=== PATIENT | male | born 1995 ===

== ENCOUNTER 2020-11-01 06:56 | Emergency (ER) | payer OTHER, MEDICAID, SELFPAY ==
[2020-11-01 07:09] VITALS: BP 137/80; PULSE 75; RESP 14; TEMP 36.1; O2SAT 97; BMI 26.9
--- NOTE | 2020-11-01 07:37 | ED.WOUNDLAC ---
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 tetanus not up to date Onset (ago): minute(s) Extremity Location: left: forearm Place: work Patient tetanus UTD: No Context: accidental Associated symptoms: none Treatments prior to arrival: bandage Related Data Allergies Allergy/AdvReac Type Severity Reaction Status Date / Time amoxicillin Allergy Hives Verified 11/01/20 07:13 Review of Systems Review of Systems: Constitutional : No Fever, No Chills, HEENT: no redness, no FB sensation Cardiovascular : No Chest Pain, No SOB Respiratory : No Dyspnea Gastrointestinal : No abdominal pain Musculoskeletal : No Joint Swelling Skin : No rash, positive skin laceration Neuro : No Weakness, No Numbness PMFSH Past Medical History Attestation statement: The following information was validated with the patient. Medical History Asthma Surgical History (Updated 11/01/20 @ 07:11 by Doe Butterfield) History of appendectomy Social History Social History (Updated 11/01/20 @ 07:43 by Cris Price DO) Patient Tobacco Use Status: Never used Tobacco Advance Directives: No Advance Directives Information Provided: No Physical Exam Vital Signs: Vital Signs: Last Vital Signs Temp 97 F 11/01/20 07:09 Pulse 75 11/01/20 07:09 Resp 14 11/01/20 07:09 BP 137/80 11/01/20 07:09 Pulse Ox 97 11/01/20 07:09 Body Mass Index 26.9 Appearance: Alert. Oriented X3. No acute distress. Eyes: Pupils equal, round and reactive to light. ENT: Pharynx normal. Neck: Normal inspection. Neck supple. CVS: Normal heart rate and rhythm. Pulses normal. Respiratory: No respiratory distress. Breath sounds normal. Abdomen: Soft and non-tender. Skin: Skin warm and dry. Normal skin color. L forearm posterior superficial laceration 3.5cm Extremities: No lower extremity edema. Neuro: Oriented X 3. No motor deficit. No sensory deficit. MDM - Wound/Laceration MDM Narrative Medical decision making narrative: 24 yo male otherwise healthy here with L forearm laceration at work, no concern for FB, needs tetanus and sutures, NV intact Procedures Laceration Laceration 1: Site: other (left forearm) Side (If applicable): left Size (cm): 3.5 Description: linear Depth: simple, single layer Local Anesthetic: lidocaine 1% Amount of anesthesia used (mL): 5 Pre-repair: wound explored and irrigated extensively Skin layer closed with: nylon Size (cm): 4-0 Number of sutures: 4 Technique: simple, interrupted Discharge Plan Discharge Clinical Impression: Laceration Patient Disposition: Home, Self-Care Instructions: Laceration (ED) Additional Instructions: return to ED for any worsening symptoms or concerns only okay to shower remove in 7 days Stand Alone Forms: Work/School Release
[2020-11-01] MEDS: Diphth,Pertus(ACell),Tet Adult 0.5 ML SYRINGE IM (07:44)
[2020-11-01] MEDS: Lidocaine HCl 2% PF/Epi 1:200 20 ML VIAL INFILTRATI (07:44)
== END 2020-11-01 08:26 | disposition home or self-care (01) ==
PROVIDERS: Emergency Provider Emergency Medicine
DX: S51.812A Laceration without foreign body of left forearm, initial encounter (principal); M79.602 Pain in left arm; W26.9XXA Contact with unspecified sharp object(s), initial encounter; Y93.9 Activity, unspecified; Y92.9 Unspecified place or not applicable; Y99.9 Unspecified external cause status
CPT/HCPCS: 12002; 90471; 90715; 99282; 99284

== ENCOUNTER → 2020-11-08 10:30 | Outpatient (BNVA) | payer OTHER, SELFPAY | PROVIDERS: Visit Provider Internal Medicine | DX: S51.812A Laceration without foreign body of left forearm, initial encounter (principal); W31.89XA Contact with other specified machinery, initial encounter | CPT/HCPCS: 99202; 99212 ==

== ENCOUNTER 2022-07-12 20:41 | Emergency (ER) | payer MEDICAID, SELFPAY ==
--- NOTE | 2022-07-12 20:42 | ECG_ITS ---
Test Reason : CHEST PAIN Blood Pressure : / mmHG Vent. Rate : 076 BPM Atrial Rate : 076 BPM P-R Int : 168 ms QRS Dur : 102 ms QT Int : 360 ms P-R-T Axes : 067 096 053 degrees QTc Int : 405 ms Normal sinus rhythm Rightward axis Borderline ECG No previous ECGs available Referred By: Judith Castro Electronically Signed By:SATYA CUNNINGHAM MD
[2022-07-12 21:08] VITALS: BP 120/73; PULSE 70; RESP 18; TEMP 36.6; O2SAT 97; BMI 27.4
[2022-07-12 21:11] LABS: MANUAL DIFF FLAG NO
[2022-07-12 21:13] LABS: Basophils Absolute Auto 0.1 X10*3/uL (0.0-0.2); Basophils Percent Auto 0.6 % (0-2); Eosinophils Absolute Auto 0.2 X10*3/uL (0.0-0.4); Eosinophils Percent Auto 1.7 % (0-4); Hematocrit 43.9 % (42.0-52.0); Hemoglobin 15.4 g/dl (14.0-18.0); Imm Gran Abs Auto 0.02 X10*3/uL (0.00-0.03); Imm Gran Pct Auto 0.2 % (0.0-0.4); Mean Corpuscular HGB Conc 35.1 g/dl (31.0-36.0); Mean Corpuscular Hemoglobin 30.2 pg (27.0-33.0); Mean Corpuscular Volume 86.1 fL (80.0-98.0); Monocytes Absolute Auto 0.9 X10*3/uL (0.1-1.2); Neutrophils Absolute Auto 5.8 x10*3/uL (2.0-8.3); Neutrophils Percent Auto 58.5 % (45-73); Platelet Count 235 X10*3/uL (160-400); Red Cell Distribution Width 12.5 % (11.0-16.0)
[2022-07-12 21:30] LABS: Alanine Aminotransferase 19 U/L (0-40); Albumin Level 4.4 g/dL (3.5-5.0); Alkaline Phosphatase 81 U/L (39-117); Anion Gap 15 (12-20); Aspartate Amino Transferase 29 U/L (5-37); Bilirubin Total 0.6 mg/dL (0.0-1.0); Blood Urea Nitrogen 16 mg/dL (9-16); Calcium 8.8 mg/dL (8.4-10.2); Carbon Dioxide 20 mmol/L (22-29); Chloride 106 mmol/L (96-108); Estimated Glomerular Filt Rate > 60; Glucose Random 114 mg/dL (60-115); Potassium 4.6 mmol/L (3.3-5.1); Sodium 136 mmol/L (135-145); Total Protein 7.3 g/dL (6.5-8.0)
[2022-07-12 21:37] LABS: Troponin-I High Sensitivity < 2.7 ng/L (<3.5-35.0)
== END 2022-07-12 22:28 | disposition left against medical advice (07) ==
PROVIDERS: Emergency Provider Emergency Medicine
DX: R07.89 Other chest pain (principal); Z79.899 Other long term (current) drug therapy
CPT/HCPCS: 36415; 80053; 84484; 85025; 93005; 99283

== ENCOUNTER 2022-08-14 12:58 | Emergency (ER) | payer MEDICAID, SELFPAY ==
--- NOTE | ~2022-08-14 | XR_ITS ---
EXAMINATION: XR CHEST CLINICAL INFORMATION: Chest pain, shortness of breath COMPARISON: None available. TECHNIQUE: 2 views of the chest were obtained. FINDINGS: The lungs are clear. There is no pneumothorax, pleural reaction, airspace consolidation, or groundglass opacity. The costophrenic sulci are well-defined. The heart is normal in size. Vascularity is normal. The hilar and mediastinal contours and visualized bony structures are unremarkable. XR/XR chest 2V IMPRESSION: Normal chest.
--- NOTE | 2022-08-14 12:59 | ECG_ITS ---
Test Reason : CP Blood Pressure : / mmHG Vent. Rate : 079 BPM Atrial Rate : 079 BPM P-R Int : 142 ms QRS Dur : 092 ms QT Int : 364 ms P-R-T Axes : 062 096 058 degrees QTc Int : 417 ms Normal sinus rhythm Rightward axis Borderline ECG When compared with ECG of 12-JUL-2022 20:55, No significant change was found Referred By: Judith Castro Electronically Signed By:Daniel Mena
--- NOTE | 2022-08-14 13:08 | ED.CHESTPAIN ---
HPI - Chest Pain General Chief Complaint: Chest Pain <Judith Castro NP - Last Filed: 08/14/22 13:11> Stated Complaint: chest pain <Judith Castro NP - Last Filed: 08/14/22 13:11> Time Seen by Provider: 08/14/22 14:08 <Judith Castro NP - Last Filed: 08/14/22 13:11> Source: patient <IZABELLA Leonard - Last Filed: 08/17/22 11:33> Mode of arrival: ambulatory <IZABELLA Leonard - Last Filed: 08/17/22 11:33> Limitations: no limitations <IZABELLA Leonard Last Filed: 08/17/22 11:33> History of Present Illness HPI narrative: Patient is a 26 year old assigned male at with a history of asthma presenting to the emergency department today with intermittent chest pain and SOB. Patient states that over the last 2 days he has had intermittent chest pain and shortness of breath which his usual inhaler is not helping with. Patient denies any dizziness, lightheadedness, abdominal pain, nausea, vomiting, fever, chills, blurry vision, double vision, loss of vision, back pain, night sweats, pain with urination, increased urinary frequency, increased urinary urgency, blood in his urine or stool, syncope or a near syncopal episode, recent trauma or falls, bowel incontinence, bladder incontinence, bowel retention, bladder retention, or any other complaints at this time. <IZABELLA Leonard - Last Filed: 08/17/22 11:33> Onset (ago): day(s) (2) <IZABELLA Leonard - Last Filed: 08/17/22 11:33> Related Data Home Medications: Previous Rx's Medication Instructions Recorded albuterol sulfate 90 mcg/actuation 1 inh inhalation QID PRN shortness 08/14/22 aerosol inhaler of breath or wheezing #8.5 grams prednisone 20 mg tablet 20 mg PO DAILY 7 days #7 tabs 08/14/22 <Judith Castro NP - Last Filed: 08/14/22 13:11> Allergies/Adverse Reactions: Allergies Allergy/AdvReac Type Severity Reaction Status Date / Time amoxicillin Allergy Hives Verified 08/14/22 13:12 <Judith Castro NP - Last Filed: 08/14/22 13:11> Review of Systems Constitutional: Constitutional: Reports no additional constitutional complaints, Denies chills, Denies fever(s) and Denies night sweats <IZABELLA Leonard - Last Filed: 08/17/22 11:33> Eyes: Eyes: Reports no additional eye complaints, Denies blurry vision, Denies change in vision, Denies diplopia, Denies eye discharge, Denies loss of vision and Denies eye pain <IZABELLA Leonard - Last Filed: 08/17/22 11:33> ENT: Denies dizziness <IZABELLA Leonard - Last Filed: 08/17/22 11:33> Cardiovascular: Cardiovascular: Reports no additional cardiovascular complaints, Reports chest pain, Denies lightheadedness, Denies Loss of Consciousness and Reports dyspnea <IZABELLA Leonard - Last Filed: 08/17/22 11:33> Respiratory: Respiratory: Reports no additional respiratory complaints and Reports dyspnea <IZABELLA Leonard - Last Filed: 08/17/22 11:33> Gastrointestinal: Gastrointestinal: Reports no additional gastrointestinal complaints, Denies abdominal pain, Denies melena, Denies hematochezia, Denies change in bowel habits and Denies change in stool character <IZABELLA Leonard - Last Filed: 08/17/22 11:33> Genitourinary: Genitourinary: Reports no additional male genitourinary complaints, Denies hematuria, Denies oliguria, Denies difficulty urinating, Denies dysuria, Denies urinary frequency, Denies urinary hesitancy, Denies urinary incontinence and Denies urinary urgency <IZABELLA Leonard - Last Filed: 08/17/22 11:33> Musculoskeletal: Musculoskeletal: Reports no additional musculoskeletal complaints, Denies numbness and Denies tingling <IZABELLA Leonard - Last Filed: 08/17/22 11:33> Neurologic: Denies dizziness, Denies loss of vision, Denies numbness and Denies tingling <IZABELLA Leonard - Last Filed: 08/17/22 11:33> Psychiatric: Psychiatric: Reports no additional psychiatric complaints <IZABELLA Leonard - Last Filed: 08/17/22 11:33> Endocrine: Endocrine: Reports no additional endocrine complaints <IZABELLA Leonard - Last Filed: 08/17/22 11:33> Hematologic/Lymphatic: Hematologic/Lymphatic: Reports no additional hematologic/lymphatic complaints <IZABELLA Leonard - Last Filed: 08/17/22 11:33> Allergic/Immunologic: Allergic/Immunologic: Reports no additional allergic/immunologic complaints <IZABELLA Leonard - Last Filed: 08/17/22 11:33> [facility] Past Medical History Attestation statement: The following information was validated with the patient. <IZABELLA Leonard - Last Filed: 08/17/22 11:33> Source: old records reviewed and nursing notes reviewed <IZABELLA Leonard - Last Filed: 08/17/22 11:33> Medical History: Medical History Asthma <Judith Castro NP - Last Filed: 08/14/22 13:11> Surgical History: Surgical History History of appendectomy <Judith Castro NP - Last Filed: 08/14/22 13:11> Social History Social History: Social History Patient Tobacco Use Status: Never used Tobacco Advance Directives: No <Judith Castro NP - Last Filed: 08/14/22 13:11> Physical Exam Vital Signs: Vital Signs: Last Vital Signs Temp 98.3 F 08/14/22 13:09 Pulse 85 08/14/22 13:09 Resp 20 08/14/22 13:09 BP 107/59 L 08/14/22 13:09 Pulse Ox 97 08/14/22 13:09 O2 Del Method Room Air 08/14/22 13:09 BMI result Body Mass Index 28.2 <Judith Castro NP - Last Filed: 08/14/22 13:11> Vital Signs: Last Vital Signs Temp 98.3 F 08/14/22 13:09 Pulse 85 08/14/22 13:09 Resp 20 08/14/22 13:09 BP 107/59 L 08/14/22 13:09 Pulse Ox 97 08/14/22 13:09 O2 Del Method Room Air 08/14/22 13:09 BMI result Body Mass Index 28.2 <IZABELLA Leonard - Last Filed: 08/17/22 11:33> Const: General: cooperative, no acute distress, alert and awake <IZABELLA Leonard - Last Filed: 08/17/22 11:33> Nutritional Appearance: well nourished <IZABELLA Leonard - Last Filed: 08/17/22 11:33> Orientation/consciousness: patient oriented x3 <IZABELLA Leonard - Last Filed: 08/17/22 11:33> Limitations: no limitations <IZABELLA Leonard - Last Filed: 08/17/22 11:33> HEENT: Head: Yes normal to inspection and Yes atraumatic <IZABELLA Leonard - Last Filed: 08/17/22 11:33> Ears: hearing grossly normal bilaterally and external ears normal <IZABELLA Leonard - Last Filed: 08/17/22 11:33> General nose exam: Normal external nose present, no nasal discharge noted and no epistaxis <IZABELLA Leonard - Last Filed: 08/17/22 11:33> Face and sinus: Yes normal facial exam, No abrasion and No laceration <IZABELLA Leonard - Last Filed: 08/17/22 11:33> Mouth: Normal oral and palatal mucosa present, no drooling and no muffled voice <IZABELLA Leonard - Last Filed: 08/17/22 11:33> Eyes: General: appearance normal, both eyes and all related structures <IZABELLA Leonard - Last Filed: 08/17/22 11:33> Periorbital: periorbital findings normal <IZABELLA Leonard - Last Filed: 08/17/22 11:33> Eyelids: Yes eyelids normal <IZABELLA Leonard - Last Filed: 08/17/22 11:33> Conjunctivae: conjunctivae normal <IZABELLA Leonard - Last Filed: 08/17/22 11:33> Pupils: Equal, round and reactive pupils present <IZABELLA Leonard - Last Filed: 08/17/22 11:33> EOM: EOMs intact bilaterally <Amada Murphy IZABELLA - Last Filed: 08/17/22 11:33> Neck: Neck: Yes normal visual inspection, Yes full ROM and Yes no lymphadenopathy <Amada Murphy OK - Last Filed: 08/17/22 11:33> Chest: Chest palpation & inspection: normal inspection of the chest <Amada Murphy OK - Last Filed: 08/17/22 11:33> Resp: Effort & Inspection: normal respiratory effort and able to speak in complete sentences <Amada Murphy OK - Last Filed: 08/17/22 11:33> Auscultation: wheezes scattered wheezes <Amada Murphy OK - Last Filed: 08/17/22 11:33> Cardio: Rate: regular rate <Amada Murphy OK - Last Filed: 08/17/22 11:33> Rhythm: regular rhythm <Amada Murphy OK - Last Filed: 08/17/22 11:33> GI: Inspection: Yes normal to inspection <Amada Murphy OK - Last Filed: 08/17/22 11:33> Neuro: General: patient oriented x3 and moves all extremities <Amada Murphy OK - Last Filed: 08/17/22 11:33> Cranial nerves: Yes Equal, round and reactive pupils present <Amada Murphy OK - Last Filed: 08/17/22 11:33> Cognition (Neuro): normal cognition <Amada Murphy OK - Last Filed: 08/17/22 11:33> Motor exam (neuro): 5/5 motor strength present throughout <Amada Murphy OK - Last Filed: 08/17/22 11:33> Sensory Exam: Normal double simultaneous stimulation for sensation <Amada Murphy OK - Last Filed: 08/17/22 11:33> Coordination: [id number] test normal <Amada Murphy IZABELLA - Last Filed: 08/17/22 11:33> Extrem: General: Yes normal to inspection, Yes full ROM and Yes capillary refill normal <Amada Murphy OK - Last Filed: 08/17/22 11:33> Psych: Appearance: grossly normal <IZABELLA Leonard - Last Filed: 08/17/22 11:33> Mental Status: mental status grossly normal <IZABELLA Leonard - Last Filed: 08/17/22 11:33> Affect: normal affect <IZABELLA Leonard - Last Filed: 08/17/22 11:33> Attitude: cooperative <IZABELLA Leonard - Last Filed: 08/17/22 11:33> Thought process: Normal thought process present <IZABELLA Leonard - Last Filed: 08/17/22 11:33> Thought content: Normal thought content present <IZABELLA Leonard - Last Filed: 08/17/22 11:33> Insight: Good insight present (Psych) <IZABELLA Leonard - Last Filed: 08/17/22 11:33> Course Course Course Narrative: tHis is a rapid medical exam. Deferred additional HPI, ROS, PE to primary provider. 26 yo male with history of asthma, tobacco smoking (cigarettes/marijuna), heart murmur here with complaints of intermittent chest pain/shortnesss of breath. Patient reports evaluated here 1 month ago for same. Established a PCP today and when speaking to intake nurse she recommended patient being seen again in the ER for continued chest pain. WIll obtain labs, EKG, CXR. VSS <Judith Castro NP - Last Filed: 08/14/22 13:11> Medical Decision Making Medical Decision Making MDM Narrative: Patient is a 26 year old assigned male at with a history of asthma presenting to the emergency department today with chest pain and shortness of breath. Patient's physical exam showed minimal scattered wheezes. Patient's blood work was unremarkable. Patient's EKG was unremarkable. Patient's chest x-ray showed no acute process. I explained my physical exam findings as well as all test results to the patient. I answered all questions asked by the patient. I stressed the importance of the patient taking his medication as prescribed. I stressed the importance of the patient following up with his primary care provider. I stressed the importance of the patient returning to the emergency department immediately if his symptoms were to worsen or if he were to develop any dizziness, shortness of breath, difficulty breathing, chest pain, blurry vision, loss of vision, nausea, vomiting, abdominal pain, fever, chills, back pain, or any other complaints. Patient verbalized agreement and understanding with this treatment plan and discharge. <IZABELLA Leonard - Last Filed: 08/17/22 11:33> Differential Diagnosis Differential Diagnoses: The differential diagnosis associated with the presentation includes <IZABELLA Leonard - Last Filed: 08/17/22 11:33> asthma exacerbation <IZABELLA Leonard - Last Filed: 08/17/22 11:33> Lab Data MDM Lab Attestation statement: I reviewed the patient's lab results. <IZAEBLLA Leonard - Last Filed: 08/17/22 11:33> Result Diagrams: 08/14/22 13:18 08/14/22 13:18 <Judith Castro NP - Last Filed: 08/14/22 13:11> Labs: Lab Results 08/14/22 08/14/22 08/14/22 Range/Units 13:18 13:18 13:18 WBC 8.5 (4.8-10.8) X10*3/uL RBC 5.28 (4.60-5.80) X10*6/uL Hgb 15.5 (14.0-18.0) g/dl Hct 45.9 (42.0-52.0) % MCV 86.9 (80.0-98.0) fL MCH 29.4 (27.0-33.0) pg MCHC 33.8 (31.0-36.0) g/dl RDW 12.9 (11.0-16.0) % Plt Count 241 (160-400) X10*3/uL MPV 9.8 (9.4-12.4) fL Immature Gran % (Auto) 0.2 (0.0-0.4) % Neut % (Auto) 61.5 (45-73) % Lymph % (Auto) 28.5 (20-40) % Ripley % (Auto) 7.8 (2-11) % Eos % (Auto) 1.5 (0-4) % Baso % (Auto) 0.5 (0-2) % Lymph # (Auto) 2.4 (1.2-4.9) X10*3/uL Ripley # (Auto) 0.7 (0.1-1.2) X10*3/uL Eos # (Auto) 0.1 (0.0-0.4) X10*3/uL Baso # (Auto) 0.0 (0.0-0.2) X10*3/uL Abs Immat Gran (auto) 0.02 (0.00-0.03) X10*3/uL Absolute Neuts (auto) 5.2 (2.0-8.3) x10*3/uL Absolute Nucleated RBC 0.000 (0.0-0.012) X10*3/uL Nucleated RBC % (auto) 0.0 (0.0-0.2) /100WBC PT 11.8 (10.0-13.1) SEC INR 1.0 (0.9-1.1) Sodium 140 (135-145) mmol/L Potassium 4.1 (3.3-5.1) mmol/L Chloride 107 (96-108) mmol/L Carbon Dioxide 27 (22-29) mmol/L Anion Gap 10 L (12-20) BUN 10 (9-16) mg/dL Creatinine 0.91 (0.5-1.4) mg/dL Estim Creat Clear Calc 122.9 Estimated GFR > 60 Random Glucose 96 (60-115) mg/dL Calcium 9.0 (8.4-10.2) mg/dL Total Bilirubin 0.6 (0.0-1.0) mg/dL Direct Bilirubin 0.1 (0.0-0.5) mg/dL AST 21 (5-37) U/L ALT 22 (0-40) U/L Alkaline Phosphatase 85 (39-117) U/L Troponin I High Sens (<3.5-35.0) ng/L Total Protein 7.0 (6.5-8.0) g/dL Albumin 4.3 (3.5-5.0) g/dL COVID-19 (ROBERT) (Negative) COVID-19 Clin Com 08/14/22 08/14/22 Range/Units 13:18 13:18 WBC (4.8-10.8) X10*3/uL RBC (4.60-5.80) X10*6/uL Hgb (14.0-18.0) g/dl Hct (42.0-52.0) % MCV (80.0-98.0) fL MCH (27.0-33.0) pg MCHC (31.0-36.0) g/dl RDW (11.0-16.0) % Plt Count (160-400) X10*3/uL MPV (9.4-12.4) fL Immature Gran % (Auto) (0.0-0.4) % Neut % (Auto) (45-73) % Lymph % (Auto) (20-40) % Ripley % (Auto) (2-11) % Eos % (Auto) (0-4) % Baso % (Auto) (0-2) % Lymph # (Auto) (1.2-4.9) X10*3/uL Ripley # (Auto) (0.1-1.2) X10*3/uL Eos # (Auto) (0.0-0.4) X10*3/uL Baso # (Auto) (0.0-0.2) X10*3/uL Abs Immat Gran (auto) (0.00-0.03) X10*3/uL Absolute Neuts (auto) (2.0-8.3) x10*3/uL Absolute Nucleated RBC (0.0-0.012) X10*3/uL Nucleated RBC % (auto) (0.0-0.2) /100WBC PT (10.0-13.1) SEC INR (0.9-1.1) Sodium (135-145) mmol/L Potassium (3.3-5.1) mmol/L Chloride (96-108) mmol/L Carbon Dioxide (22-29) mmol/L Anion Gap (12-20) BUN (9-16) mg/dL Creatinine (0.5-1.4) mg/dL Estim Creat Clear Calc Estimated GFR Random Glucose (60-115) mg/dL Calcium (8.4-10.2) mg/dL Total Bilirubin (0.0-1.0) mg/dL Direct Bilirubin (0.0-0.5) mg/dL AST (5-37) U/L ALT (0-40) U/L Alkaline Phosphatase (39-117) U/L Troponin I High Sens < 2.7 (<3.5-35.0) ng/L Total Protein (6.5-8.0) g/dL Albumin (3.5-5.0) g/dL COVID-19 (ROBERT) Negative (Negative) COVID-19 Clin Com See Note <Judith Gloria, ANGLE DOZER OPERATOR - Last Filed: 08/14/22 13:11> Lab Results 08/14/22 08/14/22 08/14/22 Range/Units 13:18 13:18 13:18 WBC 8.5 (4.8-10.8) X10*3/uL RBC 5.28 (4.60-5.80) X10*6/uL Hgb 15.5 (14.0-18.0) g/dl Hct 45.9 (42.0-52.0) % MCV 86.9 (80.0-98.0) fL MCH 29.4 (27.0-33.0) pg MCHC 33.8 (31.0-36.0) g/dl RDW 12.9 (11.0-16.0) % Plt Count 241 (160-400) X10*3/uL MPV 9.8 (9.4-12.4) fL Immature Gran % (Auto) 0.2 (0.0-0.4) % Neut % (Auto) 61.5 (45-73) % Lymph % (Auto) 28.5 (20-40) % Ripley % (Auto) 7.8 (2-11) % Eos % (Auto) 1.5 (0-4) % Baso % (Auto) 0.5 (0-2) % Lymph # (Auto) 2.4 (1.2-4.9) X10*3/uL Ripley # (Auto) 0.7 (0.1-1.2) X10*3/uL Eos # (Auto) 0.1 (0.0-0.4) X10*3/uL Baso # (Auto) 0.0 (0.0-0.2) X10*3/uL Abs Immat Gran (auto) 0.02 (0.00-0.03) X10*3/uL Absolute Neuts (auto) 5.2 (2.0-8.3) x10*3/uL Absolute Nucleated RBC 0.000 (0.0-0.012) X10*3/uL Nucleated RBC % (auto) 0.0 (0.0-0.2) /100WBC PT 11.8 (10.0-13.1) SEC INR 1.0 (0.9-1.1) Sodium 140 (135-145) mmol/L Potassium 4.1 (3.3-5.1) mmol/L Chloride 107 (96-108) mmol/L Carbon Dioxide 27 (22-29) mmol/L Anion Gap 10 L (12-20) BUN 10 (9-16) mg/dL Creatinine 0.91 (0.5-1.4) mg/dL Estim Creat Clear Calc 122.9 Estimated GFR > 60 Random Glucose 96 (60-115) mg/dL Calcium 9.0 (8.4-10.2) mg/dL Total Bilirubin 0.6 (0.0-1.0) mg/dL Direct Bilirubin 0.1 (0.0-0.5) mg/dL AST 21 (5-37) U/L ALT 22 (0-40) U/L Alkaline Phosphatase 85 (39-117) U/L Troponin I High Sens (<3.5-35.0) ng/L Total Protein 7.0 (6.5-8.0) g/dL Albumin 4.3 (3.5-5.0) g/dL COVID-19 (ROBERT) (Negative) COVID-19 Clin Com 08/14/22 08/14/22 Range/Units 13:18 13:18 WBC (4.8-10.8) X10*3/uL RBC (4.60-5.80) X10*6/uL Hgb (14.0-18.0) g/dl Hct (42.0-52.0) % MCV (80.0-98.0) fL MCH (27.0-33.0) pg MCHC (31.0-36.0) g/dl RDW (11.0-16.0) % Plt Count (160-400) X10*3/uL MPV (9.4-12.4) fL Immature Gran % (Auto) (0.0-0.4) % Neut % (Auto) (45-73) % Lymph % (Auto) (20-40) % Ripley % (Auto) (2-11) % Eos % (Auto) (0-4) % Baso % (Auto) (0-2) % Lymph # (Auto) (1.2-4.9) X10*3/uL Ripley # (Auto) (0.1-1.2) X10*3/uL Eos # (Auto) (0.0-0.4) X10*3/uL Baso # (Auto) (0.0-0.2) X10*3/uL Abs Immat Gran (auto) (0.00-0.03) X10*3/uL Absolute Neuts (auto) (2.0-8.3) x10*3/uL Absolute Nucleated RBC (0.0-0.012) X10*3/uL Nucleated RBC % (auto) (0.0-0.2) /100WBC PT (10.0-13.1) SEC INR (0.9-1.1) Sodium (135-145) mmol/L Potassium (3.3-5.1) mmol/L Chloride (96-108) mmol/L Carbon Dioxide (22-29) mmol/L Anion Gap (12-20) BUN (9-16) mg/dL Creatinine (0.5-1.4) mg/dL Estim Creat Clear Calc Estimated GFR Random Glucose (60-115) mg/dL Calcium (8.4-10.2) mg/dL Total Bilirubin (0.0-1.0) mg/dL Direct Bilirubin (0.0-0.5) mg/dL AST (5-37) U/L ALT (0-40) U/L Alkaline Phosphatase (39-117) U/L Troponin I High Sens < 2.7 (<3.5-35.0) ng/L Total Protein (6.5-8.0) g/dL Albumin (3.5-5.0) g/dL COVID-19 (ROBERT) Negative (Negative) COVID-19 Clin Com See Note <IZABELLA Leonard - Last Filed: 08/17/22 11:33> Independent Interpretation I performed an independent interpretation of an: EKG and Plain X-Ray <IZABELLA Leonard - Last Filed: 08/17/22 11:33> Interpretation: Vent. Rate: 079 BPM ? ? Atrial Rate: 079 BPM P-R Int: 142 ms? QRS Dur: 092 ms QT Int: 364 ms ? ? ? P-R-T Axes: 062 096 058 degrees QTc Int: 417 ms ? Normal sinus rhythm Rightward axis Borderline ECG When compared with ECG of 12-JUL-2022 20:55, No significant change was found Electronically Signed By:Daniel Mena Dictated By: Daniel Mena MD Signed By: Electronically signed by Daniel Mena MD 08/14/222007 My interpretation is in agreement with the radiologist's impression of this imaging study. EXAMINATION: XR CHEST CLINICAL INFORMATION: Chest pain, shortness of breath COMPARISON: None available. TECHNIQUE: 2 views of the chest were obtained. FINDINGS: The lungs are clear. There is no pneumothorax, pleural reaction, airspace consolidation, or groundglass opacity. The costophrenic sulci are well-defined. The heart is normal in size. Vascularity is normal. The hilar and mediastinal contours and visualized bony structures are unremarkable. XR/XR chest 2V IMPRESSION: Normal chest. Dictated By: Quang Yin MD Signed By: Electronically signed by Quang Yin MD 08/14/22 1427 <IZABELLA Leonard - Last Filed: 08/17/22 11:33> Discharge Plan Discharge Clinical Impression: Asthma <Judith Castro NP - Last Filed: 08/14/22 13:11> Patient Disposition: Home, Self-Care <Judith Castro NP - Last Filed: 08/14/22 13:11> Instructions: Asthma (DC) <Judith Castro NP - Last Filed: 08/14/22 13:11> Additional Instructions: Follow up with your primary care provider. Return to the emergency department immediately if your symptoms worsen or if you develop any dizziness, shortness of breath, difficulty breathing, chest pain, blurry vision, loss of vision, nausea, vomiting, abdominal pain, fever, chills, back pain, or any other complaints. <Judith Castro NP - Last Filed: 08/14/22 13:11> Prescriptions: New prednisone 20 mg tablet 20 mg PO DAILY 7 Days Qty: 7 0RF albuterol sulfate 90 mcg/actuation HFA aerosol inhaler 1 inh inhalation QID PRN (Reason: shortness of breath or wheezing) Qty: 8.5 0RF <Judith Castro NP - Last Filed: 08/14/22 13:11> Referrals: [facility] [place] Cardiovascular Services [Provider Group] (Call to establish and follow up with a iron erector to discuss the murmur you were told you had 6 years ago.) [facility] [place] Family Medicine [Provider Group] (Call to establish and follow up with a primary care provider. If you already have a primary care provider, please follow up with them.) [facility] [place] Primary Care, Susan [Provider Group] (Call to establish and follow up with a primary care provider. If you already have a primary care provider, please follow up with them.) [facility] Primary Care,Liane [Provider Group] (Call to establish and follow up with a primary care provider. If you already have a primary care provider, please follow up with them.) <Judith Castro NP - Last Filed: 08/14/22 13:11> Stand Alone Forms: Work/School Release <Judith Castro NP - Last Filed: 08/14/22 13:11> Interventions: ED Discharge Assessment Last Done: 08/14/22 14:41 <Judith Castro NP - Last Filed: 08/14/22 13:11> Discharge Date/Time: 08/14/22 14:58 <Judith Castro NP - Last Filed: 08/14/22 13:11> Print Language: Somali <Judith Castro ANGLE DOZER OPERATOR - Last Filed: 08/14/22 13:11>
[2022-08-14 13:09] VITALS: BP 107/59; PULSE 85; RESP 20; TEMP 36.8; O2SAT 97; BMI 28.2
[2022-08-14 13:23] LABS: MANUAL DIFF FLAG NO
[2022-08-14 13:25] LABS: Basophils Percent Auto 0.5 % (0-2); Eosinophils Absolute Auto 0.1 X10*3/uL (0.0-0.4); Eosinophils Percent Auto 1.5 % (0-4); Hematocrit 45.9 % (42.0-52.0); Hemoglobin 15.5 g/dl (14.0-18.0); Imm Gran Abs Auto 0.02 X10*3/uL (0.00-0.03); Imm Gran Pct Auto 0.2 % (0.0-0.4); Lymphocytes Absolute Auto 2.4 X10*3/uL (1.2-4.9); Lymphocytes Percent Auto 28.5 % (20-40); Mean Corpuscular HGB Conc 33.8 g/dl (31.0-36.0); Mean Corpuscular Hemoglobin 29.4 pg (27.0-33.0); Mean Corpuscular Volume 86.9 fL (80.0-98.0); Mean Platelet Volume 9.8 fL (9.4-12.4); Monocytes Absolute Auto 0.7 X10*3/uL (0.1-1.2); Monocytes Percent Auto 7.8 % (2-11); Neutrophils Absolute Auto 5.2 x10*3/uL (2.0-8.3); Neutrophils Percent Auto 61.5 % (45-73); Platelet Count 241 X10*3/uL (160-400); Red Blood Count 5.28 X10*6/uL (4.60-5.80); Red Cell Distribution Width 12.9 % (11.0-16.0); White Blood Count 8.5 X10*3/uL (4.8-10.8)
[2022-08-14 13:30] LABS: Prothrombin Time 11.8 SEC (10.0-13.1)
[2022-08-14 13:41] LABS: Alanine Aminotransferase 22 U/L (0-40); Albumin Level 4.3 g/dL (3.5-5.0); Alkaline Phosphatase 85 U/L (39-117); Anion Gap 10 (12-20); Aspartate Amino Transferase 21 U/L (5-37); Bilirubin Direct 0.1 mg/dL (0.0-0.5); Bilirubin Total 0.6 mg/dL (0.0-1.0); Blood Urea Nitrogen 10 mg/dL (9-16); Carbon Dioxide 27 mmol/L (22-29); Chloride 107 mmol/L (96-108); Creatinine Clr Calc Pharmacy 122.9; Estimated Glomerular Filt Rate > 60; Glucose Random 96 mg/dL (60-115); Potassium 4.1 mmol/L (3.3-5.1); Sodium 140 mmol/L (135-145)
[2022-08-14 13:49] LABS: Troponin-I High Sensitivity < 2.7 ng/L (<3.5-35.0)
[2022-08-14 13:59] LABS: COVID-19 Test Negative (Negative); IDNOW Serial# BCCEAD1C
== END 2022-08-14 14:58 | disposition home or self-care (01) ==
PROVIDERS: Nurse Practitioner Family; Emergency Provider Student in an Organized Health Care Education/Training Program
DX: J45.909 Unspecified asthma, uncomplicated (principal); R06.02 Shortness of breath; Z20.822 Contact with and (suspected) exposure to COVID-19
CPT/HCPCS: 71046; 80048; 80076; 84484; 85025; 85610; 87635; 93005; 99283

== ENCOUNTER 2022-09-16 20:40 | Emergency (ER) | payer MEDICAID, SELFPAY ==
--- NOTE | ~2022-09-16 | XR_ITS ---
EXAMINATION: XR CHEST CLINICAL INFORMATION: Chest pain and cough. COMPARISON: Chest radiograph 08/14/2022. TECHNIQUE: Frontal view of the chest was obtained. FINDINGS: Normal appearance of the cardiomediastinal silhouette. No focal airspace opacity, pleural effusion or pneumothorax. Symmetric densities in the lower lungs, favoring to represent nipple shadows. No acute osseous abnormalities. The visualized upper abdomen is within normal limits. XR/XR chest 1V IMPRESSION: No acute cardiopulmonary findings.
--- NOTE | 2022-09-16 20:42 | ECG_ITS ---
Test Reason : CHEST PAIN Blood Pressure : / mmHG Vent. Rate : 068 BPM Atrial Rate : 068 BPM P-R Int : 154 ms QRS Dur : 102 ms QT Int : 380 ms P-R-T Axes : 064 098 064 degrees QTc Int : 404 ms Normal sinus rhythm with sinus arrhythmia Rightward axis Incomplete right bundle branch block Borderline ECG When compared with ECG of 14-AUG-2022 12:59, No significant change was found Referred By: Generic ED Physician Electronically Signed By:TANJA MENDEZ
[2022-09-16 20:51] VITALS: BP 118/66; PULSE 66; RESP 16; TEMP 36.7; O2SAT 95; BMI 26.1
[2022-09-16 21:10] LABS: Hematocrit 44.9 % (42.0-52.0); Hemoglobin 15.4 g/dl (14.0-18.0); Mean Corpuscular HGB Conc 34.3 g/dl (31.0-36.0); Mean Corpuscular Volume 87.4 fL (80.0-98.0); Mean Platelet Volume 9.8 fL (9.4-12.4); Platelet Count 259 X10*3/uL (160-400); Red Blood Count 5.14 X10*6/uL (4.60-5.80); Red Cell Distribution Width 12.3 % (11.0-16.0); White Blood Count 10.4 X10*3/uL (4.8-10.8)
[2022-09-16 21:27] LABS: Anion Gap 13 (12-20); Blood Urea Nitrogen 16 mg/dL (9-16); Calcium 9.4 mg/dL (8.4-10.2); Carbon Dioxide 25 mmol/L (22-29); Chloride 104 mmol/L (96-108); Creatinine Clr Calc Pharmacy 125.5; Estimated Glomerular Filt Rate > 60; Glucose Random 96 mg/dL (60-115); Magnesium 2.1 mg/dL (1.6-2.6); Sodium 138 mmol/L (135-145)
[2022-09-16 21:38] LABS: Troponin-I High Sensitivity < 2.7 ng/L (<3.5-35.0)
[2022-09-16 22:25] VITALS: BP 115/70; PULSE 70; RESP 18; TEMP 36.5; O2SAT 97
--- NOTE | 2022-09-16 23:08 | ED_ITS ---
HPI - Chest Pain General Chief Complaint: Chest Pain Stated Complaint: chest pain Time Seen by Provider: 09/16/22 23:08 Source: patient Mode of arrival: ambulatory Limitations: no limitations History of Present Illness HPI narrative: Patient is a 26 year old assigned male at with a history of recently diagnosed heart murmur presenting to the emergency department today with chronic chest pain and new left arm numbness and tingling. Patient states that he always has this chest pain however, he recently noticed that when he bends his left elbow, his left forearm and hand have numbness/tingling. Patient states that he then straightens his left arm out at the elbow and it goes away. Patient states that he leans against his bent left elbow in his work truck regularly. Patient denies any dizziness, lightheadedness, abdominal pain, nausea, vomiting, fever, chills, blurry vision, double vision, loss of vision, difficulty breathing, shortness of breath, back pain, night sweats, pain with urination, increased urinary frequency, increased urinary urgency, blood in his urine or stool, syncope or a near syncopal episode, recent trauma or falls, bowel incontinence, bladder incontinence, bowel retention, bladder retention, or any other complaints at this time. Severity: mild Pain scale (0-10): 3 Relieving factors: nothing Exacerbating factors: nothing Treatment prior to arrival: none Related Data Previous Rx's Medication Instructions Recorded albuterol sulfate 90 mcg/actuation 1 inh inhalation QID PRN shortness 08/14/22 aerosol inhaler of breath or wheezing #8.5 grams prednisone 20 mg tablet 20 mg PO DAILY 7 days #7 tabs 08/14/22 Allergies Allergy/AdvReac Type Severity Reaction Status Date / Time amoxicillin Allergy Hives Verified 09/16/22 20:50 Review of Systems Constitutional: Constitutional: Reports no additional constitutional complaints, Denies chills, Denies fever(s) and Denies night sweats Eyes: Eyes: Reports no additional eye complaints, Denies blurry vision, Denies change in vision, Denies diplopia, Denies eye discharge, Denies loss of vision and Denies eye pain ENT: Denies dizziness Cardiovascular: Cardiovascular: Reports no additional cardiovascular complaints, Reports chest pain (chronic), Denies lightheadedness, Denies Loss of Consciousness and Denies dyspnea Respiratory: Respiratory: Reports no additional respiratory complaints and Denies dyspnea Gastrointestinal: Gastrointestinal: Reports no additional gastrointestinal complaints, Denies abdominal pain, Denies melena, Denies hematochezia, Denies c hange in bowel habits and Denies change in stool character Genitourinary: Genitourinary: Reports no additional male genitourinary complaints, Denies hematuria, Denies oliguria, Denies difficulty urinating, Denies dysuria, Denies urinary frequency, Denies urinary hesitancy, Denies urinary incontinence and Denies urinary urgency Musculoskeletal: Musculoskeletal: Reports no additional musculoskeletal complaints, Reports numbness and Reports tingling Comments: numbness and tingling in the left arm when elbow is bent Neurologic: Denies dizziness, Denies loss of vision, Reports numbness and Reports tingling Psychiatric: Psychiatric: Reports no additional psychiatric complaints Endocrine: Endocrine: Reports no additional endocrine complaints Hematologic/Lymphatic: Hematologic/Lymphatic: Reports no additional hematologic/lymphatic complaints Allergic/Immunologic: Allergic/Immunologic: Reports no additional allergic/immunologic complaints PMFSH Past Medical History Attestation statement: The following information was validated with the patient. Source: old records reviewed and nursing notes reviewed Medical History Asthma Surgical History History of appendectomy Social History Social History Patient Tobacco Use Status: Never used Tobacco Smoked in Last 30 Days: Yes Use of substances other than those prescribed or required for medical reasons: Yes Substance Use Type: Marijuana Advance Directives: No Advance Directives Information Provided: No Physical Exam Vital Signs: Vital Signs: Last Vital Signs Temp 97.6 F 09/16/22 23:22 Pulse 62 09/16/22 23:22 Resp 16 09/16/22 23:22 BP 140/65 H 09/16/22 23:22 Pulse Ox 97 09/16/22 23:22 O2 Del Method Room Air 09/16/22 23:22 BMI result Body Mass Index 26.1 Const: General: cooperative, no acute distress, alert and awake Nutritional Appearance: well nourished Orientation/consciousness: patient oriented x3 Limitations: no limitations HEENT: Head: Yes normal to inspection and Yes atraumatic Ears: hearing grossly normal bilaterally and external ears normal General nose exam: Normal external nose present, no nasal discharge noted and no epistaxis Face and sinus: Yes normal facial exam, No abrasion and No laceration Mouth: Normal oral and palatal mucosa present, no drooling and no muffled voice Eyes: General: appearance normal, both eyes and all related structures Periorbital: periorbital findings normal Eyelids: Yes eyelids normal Conjunctivae: conjunctivae normal Pupils: Equal, round and reactive pupils present EOM: EOMs intact bilaterally Neck: Neck: Yes normal visual inspection, Yes full ROM and Yes no lymphadenopathy Chest: Chest palpation & inspection: normal inspection of the chest Resp: Effort & Inspection: normal respiratory effort and able to speak in complete sentences Auscultation: clear to auscultation bilaterally Cardio: Rate: regular rate Rhythm: regular rhythm GI: Inspection: Yes normal to inspection Neuro: General: patient oriented x3 and moves all extremities Cranial nerves: Yes Equal, round and reactive pupils present Cognition (Neuro): normal cognition Motor exam (neuro): 5/5 motor strength present throughout Sensory Exam: Normal double simultaneous stimulation for sensation Coordination: [id number] test normal Extrem: General: Yes normal to inspection, Yes full ROM and Yes capillary refill normal Psych: Appearance: grossly normal Mental Status: mental status grossly normal Affect: normal affect Attitude: cooperative Thought process: Normal thought process present Thought content: Normal thought content present Insight: Good insight present (Psych) Medical Decision Making Medical Decision Making MDM Narrative: Patient is a 26 year old assigned male at with a history of a heart murmur presenting to the emergency department today with left arm numbness tingling and chronic chest pain. Patient's physical exam was as noted in the physical exam portion of this chart. Patient's blood work was unremarkable. Patient's EKG was unremarkable. Patient's chest x-ray showed no acute process. Patient's clinical presentation is most consistent with chronic chest pain and left cubital tunnel. I explained my physical exam findings as well as all test results to the patient. I answered all questions asked by the patient. I stressed the importance of the patient taking his medication as prescribed. 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 I stressed the importance of the patient returning to the emergency department immediately if his symptoms were to worsen or if he were to develop any dizziness, shortness of breath, difficulty breathing, chest pain, blurry vision, loss of vision, nausea, vomiting, abdominal pain, fever, chills, back pain, or any other complaints. Patient verbalized agreement and understanding with this treatment plan and discharge. Differential Diagnosis Differential Diagnoses: The differential diagnosis associated with the presentation includes chronic chest pain, left cubital tunnel Admission/Observation Consideration of admission/observation: Escalation of care including admission/observation considered Patient would have been admitted to the hospital had his work up had any findings where hospital admission was appropriate. Lab Data MDM Lab Attestation statement: I reviewed the patient's lab results. My interpretation of these studies and their corresponding values is that they are grossly normal. 09/16/22 21:04 09/16/22 21:04 Labs: Lab Results 09/16/22 09/16/22 09/16/22 Range/Units 21:04 21:04 21:04 WBC 10.4 (4.8-10.8) X10*3/uL RBC 5.14 (4.60-5.80) X10*6/uL Hgb 15.4 (14.0-18.0) g/dl Hct 44.9 (42.0-52.0) % MCV 87.4 (80.0-98.0) fL MCH 30.0 (27.0-33.0) pg MCHC 34.3 (31.0-36.0) g/dl RDW 12.3 (11.0-16.0) % Plt Count 259 (160-400) X10*3/uL MPV 9.8 (9.4-12.4) fL Absolute Nucleated RBC 0.000 (0.0-0.012) X10*3/uL Nucleated RBC % (auto) 0.0 (0.0-0.2) /100WBC Sodium 138 (135-145) mmol/L Potassium 4.0 (3.3-5.1) mmol/L Chloride 104 (96-108) mmol/L Carbon Dioxide 25 (22-29) mmol/L Anion Gap 13 (12-20) BUN 16 (9-16) mg/dL Creatinine 0.87 (0.5-1.4) mg/dL Estim Creat Clear Calc 125.5 Estimated GFR > 60 Random Glucose 96 (60-115) mg/dL Calcium 9.4 (8.4-10.2) mg/dL Magnesium 2.1 (1.6-2.6) mg/dL Troponin I High Sens < 2.7 (<3.5-35.0) ng/L Independent Interpretation I performed an independent interpretation of an: EKG and Plain X-Ray Interpretation: My interpretation is in agreement with the radiologist's impression of this imaging study. EXAMINATION: XR CHEST CLINICAL INFORMATION: Chest pain and cough. COMPARISON: Chest radiograph 08/14/2022. TECHNIQUE: Frontal view of the chest was obtained. FINDINGS: Normal appearance of the cardiomediastinal silhouette. No focal airspace opacity, pleural effusion or pneumothorax. Symmetric densities in the lower lungs, favoring to represent nipple shadows. No acute osseous abnormalities. The visualized upper abdomen is within normal limits. XR/XR chest 1V IMPRESSION: No acute cardiopulmonary findings. ? Dictated By: Sara Golden Signed By: Electronically signed by Sara Golden 09/16/22 9220 Vent. Rate: 068 BPM ? ? Atrial Rate: 068 BPM P-R Int: 154 ms? QRS Dur: 102 ms QT Int: 380 ms ? ? ? P-R-T Axes: 064 098 064 degrees QTc Int: 404 ms ? Normal sinus rhythm with sinus arrhythmia Rightward axis Incomplete right bundle branch block Borderline ECG When compared with ECG of 14-AUG-2022 12:59, No significant change was found DD/ 42 Chronic Conditions Patient?s care impacted by: Other (heart murmur) Discharge Plan Discharge Clinical Impression: Cubital tunnel syndrome Patient Disposition: Home, Self-Care Instructions: Cubital Tunnel Syndrome (ED) Additional Instructions: Follow up with your primary care provider and a carpenter's assistant. Return to the emergency department immediately if your symptoms worsen or if you develop any dizziness, shortness of breath, difficulty breathing, chest pain, blurry vision, loss of vision, nausea, vomiting, abdominal pain, fever, chills, back pain, or a ny other complaints. Prescriptions: No Action prednisone 20 mg tablet 20 mg PO DAILY 7 Days Qty: 7 0RF albuterol sulfate 90 mcg/actuation HFA aerosol inhaler 1 inh inhalation QID PRN (Reason: shortness of breath or wheezing) Qty: 8.5 0RF Referrals: [facility] [place] Family Medicine [Provider Group] (Call to establish and follow up with a primary care provider. If you already have a primary care provider, please follow up with them.) [facility] [place] Primary CareSusan [Provider Group] (Call to establish and follow up with a primary care provider. If you already have a primary care provider, pl ease follow up with them.) [facility] [place] Primary CareLiane [Provider Group] (Call to establish and follow up with a primary care provider. If you already have a primary care provider, please follow up with them.) Stand Alone Forms: Work/School Release Interventions: ED Discharge Assessment Last Done: 09/16/22 23:34 Discharge Date/Time: 09/16/22 23:33 Print Language: Bermudian
[2022-09-16 23:22] VITALS: BP 140/65; PULSE 62; RESP 16; TEMP 36.4; O2SAT 97
--- NOTE | 2022-09-16 23:23 | MHC.EDTECH ---
this pct assumed care of pt at 2300 ,vitals sign taken ,pt waiting for discharged paper work .
--- NOTE | 2022-09-16 23:33 | PC.NURSE ---
understands dc instructions, no distress. breathing comfortably. no cough appreciated. skin color norm.
== END 2022-09-16 23:33 | disposition home or self-care (01) ==
PROVIDERS: Emergency Provider Emergency Medicine
DX: G56.22 Lesion of ulnar nerve, left upper limb (principal); R07.9 Chest pain, unspecified
CPT/HCPCS: 36415; 71045; 80048; 83735; 84484; 85027; 93005; 99283; 99285

== ENCOUNTER 2022-11-08 14:40 | Outpatient (AMB) | payer MEDICAID, SELFPAY ==
--- NOTE | 2022-11-08 15:04 | A.OFFVIS_ITS ---
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 He ruled out for ACS. He was referred to Cardiology for further evaluation. 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 Today he presents for cardiac consultation and he reports that he has no known cardiac history. He describes a localize pain in his left chest along the sternal border which occurs randomly. He has no known aggravating or alleviating factors. His symptom can last several minutes before improving. He tells me this has been going on for a few years however he feels it is increasing recently. 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 He does not notice the discomfort during the activities but will notice it afterwards. No associated symptoms such as shortness of breath, palpitations, dizziness. No PND, orthopnea or edema. No presyncope, syncope, falls. He tells me he went for a DOT exam recently and was told he had a heart murmur. He has not been told this in the past. He describes a cardiac history in his mother who required 2 heart valve replacements, 3 open-heart surgeries, defibrillatory placement and she at age 41. He says his grandmother also of heart disease at age 56. He has siblings without any known heart issues. He drinks socially and smokes marijuana. He does not smoke cigarettes. No routine exercise but states his job is very physical. [facility] Medical History Asthma Surgical History History of appendectomy Family History Mother Aortic valve disease Maternal Grandmother No problems noted. Social History Alcohol intake: current Alcohol intake frequency: holidays/special occasions only Patient Tobacco Use Status: Never used Tobacco Substance Use Type: Marijuana Review of Systems Const All systems reviewed & are unremarkable except as noted in HPI and below Denies chills, Denies daytime sleepiness, Denies fatigue, Denies fever(s), Denies frequent falls, Denies night sweats, Denies snoring, Denies weakness, Denies weight gain and Denies weight loss Eyes Denies loss of vision ENT Denies dizziness and Denies hearing loss Card Reports chest pain, Reports chest pain at rest, Reports chest pain with activity, Denies syncope, Denies rapid heart rate, Denies edema, Denies claudication, Denies leg edema, Denies lightheadedness, Denies palpitations, Denies dyspnea, Denies dyspnea on exertion and Denies orthopnea Resp Denies cough, Denies excessive phlegm production, Denies dyspnea, Denies dyspnea on exertion, Denies snoring and Denies wheezing GI Denies abdominal pain, Denies hematochezia, Denies change in bowel habits, Denies change in stool character, Denies heartburn, Denies nausea and Denies vomiting Denies hematuria, Denies dysuria and Denies urinary frequency Musc Denies arthralgias, Denies muscle weakness, Denies numbness and Denies tingling Skin/Breast Denies nail changes and Denies rash Neuro Denies Abnormal speech present, Denies dizziness, Denies syncope, Denies frequent falls, Denies loss of vision, Denies memory loss, Denies numbness, Denies tingling and Denies weakness Psych Denies depression and Denies memory loss Endo Denies fatigue and Denies palpitations Aller/Immun Denies wheezing Physical Exam Vital Signs: Last Vital Signs Pulse 75 11/08/22 15:05 BP 120/72 11/08/22 15:05 BMI result Body Mass Index 25.5 Const General: cooperative, comfortable and no acute distress Orientation/consciousness: patient oriented x3 Neck Neck: Yes normal visual inspection Resp Effort & Inspection: normal respiratory effort Auscultation: clear to auscultation bilaterally, no crackles, no rales, no rhonchi and no wheezes Cardio Other: Faint systolic murmur heard loudest at upper left sternal border Jugular venous distension: no JVD Rate: regular rate Rhythm: regular rhythm Heart sounds: S1 normal heart sound present, S2 normal heart sound present and no rubs Neuro General: patient oriented x3 Speech: No Abnormal speech present Extrem General: Yes normal to inspection Psych Appearance: grossly normal Mental Status: mental status grossly normal Speech and movement: Normal speech and movement present Assessment & Plan Assessment & Plan (1) Chest discomfort: Code(s): R07.89 - Other chest pain Plan: Reports of sharp chest discomfort to the left of the sternal border occurring randomly lasting several minutes. Not clearly brought on by exertion but can occur after physical activity. He describes a family history of cardiac disease, full details unknown. EKG done 09/16/2022 showing normal sinus rhythm with sinus arrhythmia, right axis deviation, incomplete right bundle branch block, rate 68. ER evaluation for chest discomfort and he ruled out for ACS with normal troponins. His chest discomfort does sound atypical for coronary disease however with unclear family history will order an exercise stress test for evaluation of ischemia, arrhythmia. Will order an echocardiogram to assess for any structural heart disease. Signs and symptoms of angina reviewed with him. Emergency care if ever needed for symptoms. Cardiology follow-up when test results are known. (2) Murmur: Code(s): R01.1 - Cardiac murmur, unspecified Plan: Newer were finding of heart murmur noted on DOT exam. Faint systolic murmur noted to left sternal border. Patient reports mother had history of valve disease. Will check echo as above. Orders: Orders CA stress test 11/08/22 R01.1 - Cardiac murmur, unspecified, R07.89 - Other chest pain CA echo transthoracic complete 11/08/22 R01.1 - Cardiac murmur, unspecified, R07.89 - Other chest pain Coding Level of Care Code New Pt Level 3 (25043) Diagnoses Chest discomfort R07.89 Murmur R01.1 Time Spent (min) 26 Comment Chart review, documentation, interview, assessment
[2022-11-08 15:05] VITALS: BP 120/72; PULSE 75; BMI 25.5
== END 2022-11-08 15:35 | disposition home or self-care (01) ==
PROVIDERS: PCP Nurse Practitioner; Referring Provider Nurse Practitioner; Visit Provider Nurse Practitioner Family
DX: R07.89 Other chest pain (principal); R01.1 Cardiac murmur, unspecified
CPT/HCPCS: 99203

== ENCOUNTER → 2022-11-08 14:40 | Outpatient (BNVA) | payer MEDICAID, SELFPAY | PROVIDERS: PCP Nurse Practitioner; Referring Provider Nurse Practitioner; Visit Provider Nurse Practitioner Family | DX: R07.89 Other chest pain (principal); R01.1 Cardiac murmur, unspecified | CPT/HCPCS: 99202; 99203 ==